=== PATIENT | female | born 1995 | race Caucasian/White ===

== ENCOUNTER → 2018-06-25 07:02 | Outpatient (CLI) | payer OTHER | END | disposition home or self-care (01) | LOC: D.MRI 07:02 | PROVIDERS: ATTEND Orthopaedic Surgery | DX: M25.572 Pain in left ankle and joints of left foot (principal) ==

== ENCOUNTER 2019-03-26 06:30 | Day surgery (SDC) | payer OTHER ==
[2019-03-25 14:43] LABS: HEMATOCRIT 41.1 % (36.0-48.0); HEMOGLOBIN 13.7 g/dL (12-16); MCH 27.7 pg (26.0-34.0); MCHC 33.3 g/dL (31.0-37.0); MCV 83.2 fL (80.0-100.0); MEAN PLATELET VOLUME 10.5 fL (7.4-10.4); RBC 4.94 10x6/uL (4.00-5.40); RDW 13.2 % (11.5-14.5); WBC 12.2 10x3/uL (4.8-10.8)
[~2019-03-26] VITALS: Ht 157.5 cm; Wt 64.0 kg
--- NOTE | ~2019-03-26 | OP ---
PATIENT NAME: NATACHA TRACEY MEDICAL RECORD: [id number] :97 LOCATION:D.OPS ADMISSION DATE: SURGEON: ELIO MARIE DPM DATE OF OPERATION: 03/26/2019 PREOPERATIVE DIAGNOSES: 1. Hallux abductovalgus, right foot. 2. Instability, right first met cuneiform joint. POSTOPERATIVE DIAGNOSES: 1. Hallux abductovalgus, right foot. 2. Instability, right first met cuneiform joint. PROCEDURES: 1. Right Latif bunionectomy. 2. Right first met cuneiform joint fusion. ANESTHESIA: Preoperative popliteal block per the anesthesia department as well as intraoperative general anesthesia. HEMOSTASIS: Right thigh tourniquet at 300 mmHg. PREOPERATIVE DETAILS: The patient was taken to the OR and placed on the operating table in a supine position. This was followed by induction of general anesthesia and infiltration of local anesthetic. The right extremity was then prepped and draped in the usual aseptic technique followed by exsanguination and inflation of tourniquet. PROCEDURE #1: Latif bunionectomy, right foot: A 15 blade was used to create an incision from the base of the proximal phalanx of the hallux to the dorsal aspect of the medial cuneiform. The incision was deepened down through subcutaneous tissue being sure to avoid all vital structures. Dissection was carried down to the first MPJ where an inverted L capsulotomy was performed. The medial capsular flap was reflected and the head of the first metatarsal was delivered. A sagittal saw was used to resect the medial eminence. Attention was then directed to the first interspace where a lateral release was performed. PROCEDURE #2: First met cuneiform joint fusion: The incision as described in #1 was deepened down to the dorsal aspect of the first metatarsal and dorsal aspect of the medial cuneiform. The joint was then visualized and resected with a sagittal saw. Temporary fixation was placed and a 5-hole plate with one screw crossing the fusion site through the plate was placed under rigid internal fixation. Verification of good placement and alignment was done via C-arm. The wound was flushed. The deep tissue was reapproximated with 2-0 Vicryl including repair of the first MPJ. The subcutaneous tissue was repaired with 4-0 Rapide and the skin was closed with 4-0 Rapide in a subcuticular technique followed by Dermabond. Adaptic, 4 x 4, and Conform were used to dress the wound followed by application of modified Eli compression dressing. The tourniquet was deflated. POSTOPERATIVE DETAILS: The patient tolerated the procedure well and left the OR with vital signs stable and vascular status at preoperative levels. The patient was transported to recovery per anesthesia in stable condition. TRANSINT:[id number] Voice Confirmation ID: [id number] DOCUMENT ID: [id number] OPERATIVE REPORT [id number] NATACHA TRACEY MCKAY DPM CC: [id number] DICTATION DATE: 03/26/19 1028 PHOTOGRAPHIC DEVELOPER AND PRINTER: 03/26/19 1051 [facility] [address] [place] [address]
[2019-03-26 07:30] VITALS: BP 123/57; Ht 157.5 cm; Wt 64.0 kg
[2019-03-26 07:44] LABS: HCG URINE NEGATIVE (NEGATIVE)
--- NOTE | 2019-03-26 13:42 | NUR ---
1220-DISCHARGE CRITERIA MET. IV REMOVED WITH CATH INTACT,DISPOSED INTO SHARPS. APPLIED BANDAID. VSS. DENIES PAIN. DRESSING CDI.CAP REFILL WNI.SKIN WARM AND PINK. REVIEWED POST OPERATIVE INSTRUCTIONS AND FOLLOW UP APPOINTMENT. VERBALIZED UNDERSTANDING. ESCORTED OUT VIA W/C WITH FATHER AWAITING TO DRIVE HOME.
== END 2019-03-26 12:20 | disposition home or self-care (01) ==
LOC: D.OPS 06:30 → D.PAN 08:30 → D.OPS 10:05
PROVIDERS: Anesthesiology; ATTEND Podiatrist
DX: M20.11 Hallux valgus (acquired), right foot (principal); M25.374 Other instability, right foot